=== PATIENT | male | born 1945 | race Caucasian/White ===

== ENCOUNTER → 2018-01-18 | Day surgery (SDC) | payer MEDICARE, OTHER ==
[~2018-01-18] MED LIST: Glucagon,Human Recombinant 1 MG Vial IVPUSH ONE; LORazepam 2 MG/ML SDV IVPUSH ONE; Lactated Ringers 1,000 ML IV SCH; Lactated Ringers 1,000 ML ONE; Lidocaine 1% 4 ML ONE; Midazolam 1 MG/ML 2 ML SDV ONE; Neostigmine Methylsulfate 1 MG/ML 5 ML Syringe ONE; Ondansetron 4 MG/2 ML SDV ONE; Propofol 200 MG/20 ML SDV ONE; Rocuronium 50 MG/5 ML Vial ONE; Sodium Chloride 0.9% 10 ML Syringe FLUSH PRN; fentaNYL 250 MCG/5 ML SDV ONE
--- NOTE | 2018-01-18 15:49 | EDM.PDOC ---
ED HPI GENERAL MEDICAL PROBLEM - General Chief Complaint: Gastrointestinal Problem Stated Complaint: FB STUCK IN THROAT Time Seen by Provider: 01/18/18 15:13 Source of Information: Reports: Patient History Limitations: Reports: No Limitations - History of Present Illness INITIAL COMMENTS - FREE TEXT/NARRATIVE: The patient presents with a pork chop stuck in his esophagus. He had a pork chop for lunch and a piece of pork got stuck. He tried a few different things to get it to move like putting his finger down his throat but it did not help. He waited for a few hours and it still did not move. He had this happen about 20 years ago and he had to have a procedure to get it removed and his esophagus dilated. For the past few years he has been careful eating any meat such as steak. He has to take small bites and drink fluids. He has no other complaints. Onset: Sudden Duration: Hour(s): Location: Reports: Other (esophagus) Quality: Reports: Ache Severity: Mild Improves with: Reports: None Worsens with: Reports: None Associated Symptoms: Reports: No Other Symptoms - Related Data Allergies Allergy/AdvReac Type Severity Reaction Status Date / Time No Known Allergies Allergy Verified 01/18/18 15:13 Past Medical History HEENT History: Reports: Hard of Hearing, Impaired Vision Cardiovascular History: Reports: High Cholesterol, Hypertension Musculoskeletal History: Reports: Arthritis Endocrine/Metabolic History: Reports: Diabetes, Type II, Hypothyroidism - Infectious Disease History Infectious Disease History: Reports: Chicken Pox, Measles, Mumps - Past Surgical History GI Surgical History: Reports: Colonoscopy, EGD, Hernia, Abdominal Male Surgical History: Reports: Prostatectomy Musculoskeletal Surgical History: Reports: Other (See Below) Other Musculoskeletal Surgeries/Procedures:: cartilage removed from left knee Social & Family History - Family History Family Medical History: Noncontributory - Tobacco Use Smoking Status *Q: Never Smoker - Caffeine Use Caffeine Use: Reports: Coffee - Recreational Drug Use Recreational Drug Use: No ED ROS GENERAL - Review of Systems Review Of Systems: See Below Constitutional: Reports: No Symptoms HEENT: Reports: No Symptoms Respiratory: Reports: No Symptoms Cardiovascular: Reports: No Symptoms Endocrine: Reports: No Symptoms GI/Abdominal: Reports: No Symptoms : Reports: No Symptoms Musculoskeletal: Reports: No Symptoms Skin: Reports: No Symptoms Neurological: Reports: No Symptoms Psychiatric: Reports: No Symptoms ED EXAM, GI/ABD - Physical Exam Exam: See Below Exam Limited By: No Limitations General Appearance: Alert, No Apparent Distress Ears: Normal External Exam Nose: Normal Inspection Throat/Mouth: Normal Inspection Head: Atraumatic, Normocephalic Neck: Normal Inspection, Supple, Non-Tender Respiratory/Chest: No Respiratory Distress, Lungs Clear, Normal Breath Sounds Cardiovascular: Regular Rate, Rhythm, No Edema, No Murmur GI/Abdominal Exam: Soft, Non-Tender, No Organomegaly, No Mass Back Exam: Normal Inspection Extremities: Normal Inspection Neurological: Alert, Oriented, No Motor/Sensory Deficits Course - Vital Signs Last Recorded V/S: Last Vital Signs Temp 97.9 F 01/18/18 15:13 Pulse 66 01/18/18 15:13 Resp 17 01/18/18 15:13 BP 142/82 H 01/18/18 15:13 Pulse Ox 98 01/18/18 15:13 - Orders/Labs/Meds Orders: Active Orders 24 hr Category Date Time Status Peripheral IV Care [RC] . DIRECTED Care 01/18/18 15:22 Active Lactated Ringers [Ringers, Lactated] 1,000 ml Med 01/18/18 15:30 Active IV ASDIRECTED Sodium Chloride 0.9% [Saline Flush] Med 01/18/18 15:22 Active 10 ml FLUSH ASDIRECTED PRN Peripheral IV Insertion Adult [OM.PC] Routine Oth 01/18/18 15:22 Ordered Medication Orders Lactated Ringer's (Ringers, Lactated) 1,000 mls @ 100 mls/hr IV ASDIRECTED KARLA Last Admin: 01/18/18 15:40 Dose: 100 mls/hr Sodium Chloride (Saline Flush) 10 ml FLUSH ASDIRECTED PRN PRN Reason: Keep Vein Open Last Admin: 01/18/18 15:43 Dose: 10 ml Meds: Medications Generic Name Dose Route Start Last Admin Trade Name Freq PRN Reason Stop Dose Admin Lactated Ringer's 1,000 mls @ 100 mls/hr 01/18/18 15:30 01/18/18 15:40 Ringers, Lactated IV 100 mls/hr ASDIRECTED KARLA Administration Sodium Chloride 10 ml 01/18/18 15:22 01/18/18 15:43 Saline Flush FLUSH 10 ml ASDIRECTED PRN Administration Keep Vein Open Discontinued Medications Generic Name Dose Route Start Last Admin Trade Name Miate PRN Reason Stop Dose Admin Glucagon 1 mg 01/18/18 15:22 01/18/18 15:43 Glucagen IVPUSH 01/18/18 15:23 1 mg ONETIME ONE Administration Lorazepam 1 mg 01/18/18 15:23 01/18/18 15:41 Ativan IVPUSH 01/18/18 15:24 1 mg ONETIME ONE Administration - Re-Assessments/Exams Free Text/Narrative Re-Assessment/Exam: 01/18/18 17:23 I ordered an IV LR at 100mL/hr, glucagon 1mg IV, and ativan 1mg IV. I had him try to drink some soda over an hour after the meds and he still had the obstruction. I called Dr Solis and she will come see the patient. Departure - Departure Time of Disposition: 17:25 Disposition: DC/Tfer to [facility] Condition: Good Clinical Impression: Esophageal foreign body Qualifiers: Encounter type: initial encounter Qualified Code(s): T18.108A - Unspecified foreign body in esophagus causing other injury, initial encounter - Discharge Information Referrals: Man Woodward MD [Primary Care Provider] - Forms: ED Department Discharge - My Orders Last 24 Hours: My Active Orders 01/18/18 15:22 Peripheral IV Care [RC] . DIRECTED Sodium Chloride 0.9% [Saline Flush] 10 ml FLUSH ASDIRECTED PRN Peripheral IV Insertion Adult [OM.PC] Routine 01/18/18 15:30 Lactated Ringers [Ringers, Lactated] 1,000 ml IV ASDIRECTED - Assessment/Plan Last 24 Hours: My Active Orders 01/18/18 15:22 Peripheral IV Care [RC] . DIRECTED Sodium Chloride 0.9% [Saline Flush] 10 ml FLUSH ASDIRECTED PRN Peripheral IV Insertion Adult [OM.PC] Routine 01/18/18 15:30 Lactated Ringers [Ringers, Lactated] 1,000 ml IV ASDIRECTED
--- NOTE | 2018-01-18 19:30 | PCM.HP ---
H&P History of Present Illness - General Date of Service: 01/18/18 Admit Problem/Dx: foreign body in the esophagus Source of Information: Patient, Provider History Limitations: Reports: No Limitations - History of Present Illness Initial Comments - Free Text/Narative: Tad is a 72-year-old man presents to emergency department complaining of a foreign body stuck in his esophagus. He reports eating pork Earlier in the day. He noted. Subsequently, when trying to drink and eat that the food or fluids would not go down, and he was admitted began to choke afterwards. He denies having pain unless he is attempting to swallow something. He reports having a similar episode about 20 years ago where he had to have a scope to remove the food and had a dilation procedure of the esophagus afterwards. He enies ever being informed of the reason why he had the stricture. Onset of Symptoms: Reports: Today - Related Data Allergies/Adverse Reactions: Allergies Allergy/AdvReac Type Severity Reaction Status Date / Time No Known Allergies Allergy Verified 01/18/18 15:13 Past Medical History HEENT History: Reports: Hard of Hearing, Impaired Vision Cardiovascular History: Reports: High Cholesterol, Hypertension Musculoskeletal History: Reports: Arthritis Endocrine/Metabolic History: Reports: Diabetes, Type II, Hypothyroidism - Infectious Disease History Infectious Disease History: Reports: Chicken Pox, Measles, Mumps - Past Surgical History GI Surgical History: Reports: Colonoscopy, EGD, Hernia, Abdominal Male Surgical History: Reports: Prostatectomy Musculoskeletal Surgical History: Reports: Other (See Below) Other Musculoskeletal Surgeries/Procedures:: cartilage removed from left knee Social & Family History - Family History Cardiac: Denies: NM Neurological: Denies: CVA Oncologic: Reports: None - Tobacco Use Smoking Status *Q: Never Smoker - Caffeine Use Caffeine Use: Reports: Coffee - Recreational Drug Use Recreational Drug Use: No H&P Review of Systems - Review of Systems: Review Of Systems: See Below General: Reports: No Symptoms HEENT: Reports: No Symptoms Pulmonary: Reports: No Symptoms Cardiovascular: Reports: No Symptoms Gastrointestinal: Reports: Difficulty Swallowing Genitourinary: Reports: No Symptoms Musculoskeletal: Reports: No Symptoms Skin: Reports: No Symptoms Psychiatric: Reports: No Symptoms Neurological: Reports: No Symptoms Hematologic/Lymphatic: Reports: No Symptoms Immunologic: Reports: No Symptoms Exam - Exam Exam: See Below - Vital Signs Vital Signs: Last Vital Signs Temp 36.6 C 01/18/18 15:13 Pulse 66 01/18/18 15:13 Resp 17 01/18/18 15:13 BP 142/82 H 01/18/18 15:13 Pulse Ox 98 01/18/18 15:13 Weight: 95.254 kg - Exam General: Alert, Oriented HEENT: Conjunctiva Clear, EOMI Neck: Supple Lungs: Clear to Auscultation, Normal Respiratory Effort Cardiovascular: Regular Rate, Regular Rhythm GI/Abdominal Exam: Soft, Non-Tender, No Distention Extremities: Normal Inspection Peripheral Pulses: 2+: Dorsalis Pedis (L), Dorsalis Pedis (R) Skin: Warm, Dry, Intact Neuro Extensive - Mental Status: Alert, Oriented x3, Normal Mood/Affect Neuro Extensive - Motor, Sensory, Reflexes: CN II-XII Intact Psychiatric: Alert, Normal Affect *Q Meaningful Use (ADM) - VTE Risk Assess *Q Each Risk Factor Represents 1 Point: Minor Surgery Planned, Obesity ( BMI > 25 kg/m2) Total Score 1 Point Risk Factors: 2 Each Risk Factor Represents 2 Points: Age 60 - 74 Years Total Score 2 Point Risk Factors: 2 Problem List Initiated/Reviewed/Updated: Yes Orders Last 24hrs: Active Orders 24 hr Category Date Time Status EKG Documentation Completion [RC] ASDIRECTED Care 01/18/18 18:29 Active Peripheral IV Care [RC] . DIRECTED Care 01/18/18 15:22 Active Lactated Ringers [Ringers, Lactated] 1,000 ml Med 01/18/18 15:30 Active IV ASDIRECTED Sodium Chloride 0.9% [Saline Flush] Med 01/18/18 15:22 Active 10 ml FLUSH ASDIRECTED PRN Peripheral IV Insertion Adult [OM.PC] Routine Oth 01/18/18 15:22 Ordered Schedule Procedure [COMM] Stat Oth 01/18/18 19:15 Ordered EKG 12 Lead [EK] Stat Ther 01/18/18 18:29 Ordered Medication Orders Lactated Ringer's (Ringers, Lactated) 1,000 mls @ 100 mls/hr IV ASDIRECTED KARLA Last Admin: 01/18/18 15:40 Dose: 100 mls/hr Sodium Chloride (Saline Flush) 10 ml FLUSH ASDIRECTED PRN PRN Reason: Keep Vein Open Last Admin: 01/18/18 15:43 Dose: 10 ml Assessment/Plan Comment:: 72-year-old male with esophageal foreign body. - Plan for EGD with retrieval of the foreign body. We discussed the possibility of a dilation. Risks of bleeding or perforation of the esophagus with the procedure were explained. The patient's written consent was obtained - Will consider observation based on intraoperative findings - nothing by mouth - IV fluid resuscitation as needed Barbara Solis MD General surgery
--- NOTE | 2018-01-18 19:35 | PCM.PREANE ---
Preanesthetic Assessment - Procedure Proposed Procedure: foreign body removal esophagus - Anesthesia/Transfusion/Family Hx Anesthesia History: Prior Anesthesia Without Reaction Family History of Anesthesia Reaction: No Transfusion History: No Prior Transfusion(s) - Review of Systems General: No Symptoms Pulmonary: No Symptoms Cardiovascular: No Symptoms Gastrointestinal: No Symptoms Neurological: No Symptoms Other: Reports: Diabetes, Thyroid Problems, Sinus Problem - Physical Assessment NPO Status Date: 01/18/18 NPO Status Time: 12:00 O2 Sat by Pulse Oximetry: 98 Respiratory Rate: 17 Vital Signs: Last Vital Signs Temp 97.9 F 01/18/18 15:13 Pulse 66 01/18/18 15:13 Resp 17 01/18/18 15:13 BP 142/82 H 01/18/18 15:13 Pulse Ox 98 01/18/18 15:13 Height: 5 ft 7 in Weight: 95.254 kg ASA Class: 2E Mental Status: Alert & Oriented x3 Airway Class: Mallampati = 1 Dentition: Reports: Normal Dentition Thyro-Mental Finger Breadths: 3 Mouth Opening Finger Breadths: 3 ROM/Head Extension: Full Lungs: Clear to Auscultation, Normal Respiratory Effort Cardiovascular: Regular Rate, Regular Rhythm - Allergies Allergies/Adverse Reactions: Allergies Allergy/AdvReac Type Severity Reaction Status Date / Time No Known Allergies Allergy Verified 01/18/18 15:13 - Blood Blood Available: No - Acknowledgements Anesthesia Type Planned: General Anesthesia Pt an Appropriate Candidate for the Planned Anesthesia: Yes Alternatives and Risks of Anesthesia Discussed w Pt/Guardian: Yes Pt/Guardian Understands and Agrees with Anesthesia Plan: Yes PreAnesthesia Questionnaire HEENT History: Reports: Hard of Hearing, Impaired Vision Cardiovascular History: Reports: High Cholesterol, Hypertension Respiratory History: Reports: None Gastrointestinal History: Reports: None Musculoskeletal History: Reports: Arthritis Endocrine/Metabolic History: Reports: Diabetes, Type II, Hypothyroidism - Infectious Disease History Infectious Disease History: Reports: Chicken Pox, Measles, Mumps - Past Surgical History GI Surgical History: Reports: Colonoscopy, EGD, Hernia, Abdominal Male Surgical History: Reports: Prostatectomy Musculoskeletal Surgical History: Reports: Other (See Below) Other Musculoskeletal Surgeries/Procedures:: cartilage removed from left knee - SUBSTANCE USE Smoking Status *Q: Former Smoker (quit 1972) Tobacco Use Within Last Twelve Months: No Second Hand Smoke Exposure: No Days Per Week of Alcohol Use: 7 Number of Drinks Per Day: 2 (zeke) Total Drinks Per Week: 14 Recreational Drug Use History: No - CURRENT (IN HOUSE) MEDS Current Meds: Current Medications Lactated Ringer's (Ringers, Lactated) 1,000 mls @ 100 mls/hr IV ASDIRECTED KARLA Last Admin: 01/18/18 15:40 Dose: 100 mls/hr Sodium Chloride (Saline Flush) 10 ml FLUSH ASDIRECTED PRN PRN Reason: Keep Vein Open Last Admin: 01/18/18 15:43 Dose: 10 ml Discontinued Medications Glucagon (Glucagen) 1 mg IVPUSH ONETIME ONE Stop: 01/18/18 15:23 Last Admin: 01/18/18 15:43 Dose: 1 mg Lorazepam (Ativan) 1 mg IVPUSH ONETIME ONE Stop: 01/18/18 15:24 Last Admin: 01/18/18 15:41 Dose: 1 mg
--- NOTE | 2018-01-18 20:19 | PCM.OPNOTE ---
- General Post-Op/Procedure Note Date of Surgery/Procedure: 01/18/18 Operative Procedure(s): EGD with retrieval of foreign body Findings: foreign body in distal esophagus Pre Op Diagnosis: esophageal foreign body Post-Op Diagnosis: same Anesthesia Technique: General ET Tube Primary Surgeon: Barbara Solis Anesthesia Provider: Madan Quintana Pathology: none Output, Urine Amount: 0 EBL in mLs: 0 Drain/Tube Comments:: none Complications: none apparent Condition: Good
--- NOTE | 2018-01-18 20:25 | PCM.PRNOTE ---
- Free Text/Narrative Note: Operative Report Date of procedure: January 18, 2018 Preoperative diagnosis: esophageal foreign body Postoperative diagnosis: same Surgeon: Barbara Solis M.D. Procedure: EGD with retrieval of foreign body Anesthesia: general Anesthesiologist: Madan Quintana CRNA IV fluids: see anesthesia report Estimated blood loss: 0 mL Specimens: none. Indication: The patient is an 72 -year-old gentleman who presented with a foreign body sensation in his esophagus. The patient was consented for an EGD with intervention. Risk of bleeding and perforation were discussed. The patient's consent was obtained Description of the procedure: The patient was taken to the endoscopy suite and placed on hemodynamic monitoring. The nurse metallographer induced MAC anesthesia. A bite block was placed. The patient was positioned in the left lateral decubitus position. A timeout was performed. The endoscope was gently placed into the mouth to the back of the pharynx and introduced into the esophagus. The scope was gently advanced under direct visualization down to the level of the [place] esophagus, where we encountered a foreign body that appeared to be consistent with a piece of meat. We grasped the object with a tripod endoscopic device and were able to withdraw the foreign body for a few centimeters before we were not able to grasp it any longer with the tripod device. This was repeated with the biopsy forceps, an attempt to grab the object. A net was attempted, but this was not successful. We were able to grasp the object using a hex snare and withdrawn through the mouth. We proceeded to replace the scope through the mouth and pharynx into the esophagus through the lower esophageal sphincter. it was no apparent stricture. The stomach was then entered. Normal rugal folds were noted. The scope was advanced into the antrum. . The pylorus was then entered and the first and second portion of the duodenum was inspected. There were no ulcerations in the duodenum. The scope was then retroflexed in the cardia and fundus were investigated. There is no evidence of any hiatal hernia No other abnormalities were noted. The scope was then withdrawn while inspecting the esophagus. There was no esophagitis. The procedure was terminated. the patient tolerated the procedure well without any evidence of complications. Instructions: the patient will be discharged home after recovery. Barbara Solis MD General Surgery
--- NOTE | 2018-01-18 20:32 | PCM.POSTAN ---
POST ANESTHESIA ASSESSMENT - MENTAL STATUS Mental Status: Alert, Oriented - VITAL SIGNS Pulse Rate: 69 SaO2: 97 Resp Rate: 9 Blood Pressure: 136/80 Temperature: 98.3 F - RESPIRATORY Respiratory Status: Respiratory Rate WNL, Airway Patent, O2 Saturation Stable, Supplemental Oxygen - CARDIOVASCULAR CV Status: Pulse Rate WNL, Blood Pressure Stable - GASTROINTESTINAL GI Status: No Symptoms - PAIN Pain Score: 0 (denies any throat pain) - POST OP HYDRATION Hydration Status: Adequate & Stable
--- NOTE | 2018-01-18 20:53 | PCM48HPAN ---
Post Anesthesia Note - EVALUATION WITHIN 48HRS OF ANESTHETIC Vital Signs in Normal Range: Yes Patient Participated in Evaluation: Yes Respiratory Function Stable: Yes Airway Patent: Yes Cardiovascular Function Stable: Yes Hydration Status Stable: Yes Pain Control Satisfactory: Yes Nausea and Vomiting Control Satisfactory: Yes Mental Status Recovered: Yes Pulse Rate: 69 Resp Rate: 9 Temperature: 98.3 F Blood Pressure: 136/80
== END | disposition home or self-care (01) ==
LOC: JD.ED 15:03 → JD.SDS 19:24
PROVIDERS: ATTEND Surgery
DX: T18.108A Unspecified foreign body in esophagus causing other injury, initial encounter (principal); I10 Essential (primary) hypertension; E11.9 Type 2 diabetes mellitus without complications; E66.9 Obesity, unspecified; Z68.33 Body mass index [BMI] 33.0-33.9, adult; E78.00 Pure hypercholesterolemia, unspecified; E03.9 Hypothyroidism, unspecified; Z87.891 Personal history of nicotine dependence; Z79.899 Other long term (current) drug therapy; X58.XXXA Exposure to other specified factors, initial encounter
CPT/HCPCS: 43247; 82962; 93005; 96361; 96374; 96375; 99285; J1610; J2060; J2250; J2405; J2704; J2710; J3010; J7050; J7120; 00731; J2001